=== PATIENT | female | born 1975 | race Caucasian/White ===

== ENCOUNTER 2019-10-06 10:33 | Outpatient (CLI) | payer OTHER, SELFPAY ==
[2019-10-06 10:55] LABS: Basophils Absolute Auto 0.1 K/mm3 (0.0-0.1); Basophils Percent Auto 0.7 % (0.2-1.2); Eosinophils Absolute Auto 0.1 K/mm3 (0-0.3); Eosinophils Percent Auto 1.2 % (0-4.4); Hematocrit 40.1 % (37.0-47.0); Hemoglobin 13.5 g/dL (12.0-15.0); Immature Granulocyte Absolute 0.02 K/mm3 (0.00-0.031); Immature Granulocyte Percent A 0.3 % (0-0.5); Lymphocytes Absolute Auto 1.76 K/mm3 (0.9-3.2); Lymphocytes Percent Auto 25.7 % (18.3-44.2); Mean Corpuscular HGB Conc 33.7 g/dl (32-36); Mean Corpuscular Hemoglobin 30.7 pg (26-34); Mean Corpuscular Volume 91.1 fl (80-100); Mean Platelet Volume 9.5 fl (7.4-10.4); Monocytes Absolute Auto 0.3 K/mm3 (0.1-0.6); Monocytes Percent Auto 4.7 % (2.6-8.5); Neutrophils Absolute Auto 4.6 K/mm3 (1.3-6.7); Neutrophils Percent Auto 67.4 % (45.5-73.1); Platelet Count Result 287 k/mm3 (150-375); Red Cell Distribution Width 12.8 % (11.5-14.5); White Blood Count 6.9 K/mm3 (4.5-10.0)
[2019-10-06 11:12] LABS: Alanine Aminotransferase 16 U/L (4-35); Albumin Level 4.7 g/dL (3.5-5.1); Alkaline Phosphatase 58 U/L (38-126); Anion Gap 7 mmol/L (8-16); Aspartate Amino Transferase 27 U/L (14-36); Bilirubin,Total 0.6 mg/dL (0.2-1.3); Blood Urea Nitrogen 9 mg/dL (7-17); Calcium 8.9 mg/dL (8.4-10.2); Carbon Dioxide 28 mmol/L (22-30); Chloride 103 mmol/L (98-107); Cholesterol 203 mg/dL (0-200); Estimated Glomerular Filt Rate > 60; Glucose 95 mg/dL (65-105); HDL Direct 48 mg/dL; Potassium 3.8 mmol/L (3.4-5.0); Sodium 138 mmol/L (137-145); Triglycerides 132 mg/dL (<150)
[2019-10-06 11:22] LABS: LDL Cholesterol Direct 131 mg/dL
[2019-10-06 11:40] LABS: Thyroid Stimulating Hormone 0.924 uIU/mL (0.465-4.680)
== END 2019-10-06 10:34 | disposition home or self-care (01) ==
PROVIDERS: Visit Provider Obstetrics & Gynecology
DX: Z01.419 Encounter for gynecological examination (general) (routine) without abnormal findings (principal)
CPT/HCPCS: 36415; 80053; 80061; 82306; 84443; 85025

== ENCOUNTER → 2019-12-09 10:40 | Outpatient (CLI) | payer OTHER, SELFPAY ==
--- NOTE | ~2019-12-09 | MM_ITS ---
EXAMINATION: MM screening hi BI w crispin HISTORY: Screening mammogram TECHNIQUE: Craniocaudal and mediolateral oblique 3-D tomosynthesis images were obtained and synthetic 2-D images were generated. CAD analysis was submitted and interpreted. COMPARISON: No prior mammogram is available for comparison at this institution. BREAST PARENCHYMAL COMPOSITION: The breasts are extremely dense, which lowers the sensitivity of mamm ography. FINDINGS: Bilateral calcifications are noted, more numerous on the left, with numerous punctate micro calcifications in the upper outer quadrant of the left breast in particular. Magnification views are recommended for better definition of the upper outer quadrant left breast microcalcifications. Otherwise there is no evidence of suspicious mass, calcification, or architectural distortion to sugg est malignancy in either breast. There has been no suspicious interval change. IMPRESSION: 1. Upper outer quadrant left breast microcalcifications 2. Recommend diagnostic left mammogram with magnification views BI-RADS Category 0: Incomplete: Needs additional imaging evaluation. Reviewed, dictated and finalized at location A.
== END ==
PROVIDERS: PCP Internal Medicine; Visit Provider Obstetrics & Gynecology
DX: Z12.31 Encounter for screening mammogram for malignant neoplasm of breast (principal); R92.8 Other abnormal and inconclusive findings on diagnostic imaging of breast
CPT/HCPCS: 77063; 77067

== ENCOUNTER → 2019-12-30 08:34 | Outpatient (CLI) | payer OTHER, SELFPAY ==
--- NOTE | ~2019-12-30 | MM_ITS ---
EXAMINATION: MM diagnostic mammo unilat LT HISTORY: Indeterminate left breast calcifications on baseline screening mammogram TECHNIQUE: Additional images of the left breast were performed. CAD analysis was submitted and interp reted. COMPARISON: 12/09/2019 FINDINGS: There are punctate calcifications in a segmental distribution in the anterior third of the upper outer quadrant of the left breast which appear to be round in morphology. No suspicious mass or architectural distortion is identified. IMPRESSION: 1. Probably benign left breast calcifications. 2. Recommend 6 month follow-up left diagnostic mammogram. BI-RADS category 3, probably benign findings. Reviewed, dictated and finalized at location A. [employer] DEPARTMENT
== END ==
PROVIDERS: Visit Provider Obstetrics & Gynecology
DX: R92.8 Other abnormal and inconclusive findings on diagnostic imaging of breast (principal)
CPT/HCPCS: 77065

== ENCOUNTER 2020-05-09 09:01 | Outpatient (CLI) | payer OTHER, SELFPAY ==
--- NOTE | 2020-05-26 15:39 | WPDHOMESLEEP ---
Sleep Study - Home Unattended Date of Study: 05/09/20 Ordering Provider: Rishi David APRN Interpreting Provider: Grisel Bansal MD Home Sleep Study Type: Watch PAT Height: 1.63 m Weight: 72.575 kg Body Mass Index: 27.4 Neck Circumference (inches): 16 Crane: 12 Reason for Sleep Study Non-restorative sleep, loud snoring Sleep History Mari Greer is a 44 year old female who reports poor sleep over the last 8 years. Her family tells her that she snores loudly nightly. She snores in short bursts and stops breathing abruptly. She wakes up throughout the night and has excessive daytime sleepiness. She rarely awakens at night with heartburn, belching or coughing. She frequently awakens from sleep feeling short of breath. She rarely has trouble sleeping with a cold. She occasionally wakes up gasping for breath at night. She occasionally has breathing problems at night observed by others. She does not sweat excessively at night or notice her heart pounding or beating irregularly night. She occasionally falls asleep during the day, never involuntarily or while driving. She does not have loss of muscle tone with strong emotion. She does not have daytime difficulties due to excessive sleepiness. She works as a impregnator /upscale security officer. She does not feel paralyzed on waking or falling asleep and does not have vivid dreamlike scenes upon waking or falling asleep. She does not feel afraid to fall asleep. She does not have nightmares. She occasionally remembers her dreams. She frequently has racing thought. She occasionally feels sad or depressed. She frequently feels anxious, and frequently has muscular tension. She does not kick at night, however occasionally she notices parts of her body kicking at night. She does not have achy or crawling feelings in her legs at night, and does not have leg pain at night. She is occasionally has morning jaw pain. She frequently clenches her teeth at night. She is not bothered by pain during the day and is not awakened by pain at night. She frequently wakes up feeling stiff in the morning with sore achy muscles and pain in the neck and spine. She has fatigue, memory problems, concentration difficulties and feels tense. Normal bedtime is 10:00 p.m. falling asleep within minutes. She typically wakes 3-5 times at night for no apparent reason. She may stay awake from an hour to 2 hours when this happens. She wakes the morning at 6:00 a.m.. She estimates 8 hours of sleep at night. On the weekends, she stays awake until 11:00 p.m. and wakes at 8:00 a.m. Her sleep is sometimes disturbed by her , and sometimes by one of their pets. Habits: she quit tobacco 25 years ago. Caffeine 2 servings a day. Alcohol 1-2 per day. No recreational drugs. COUNT INCLUDES THE [facility] Past Medical History Medical History (Updated 05/26/20 @ 15:45 by Grisel Bansal MD) Depression Diverticulitis GERD (gastroesophageal reflux disease) Hypertension IBS (irritable bowel syndrome) Twins, both liveborn Surgical History Surgical History (Updated 05/26/20 @ 16:17 by Grisel Bansal MD) Previous section Family History Family History Grandparent Family history of coronary artery disease Social History Social History (Updated 05/26/20 @ 15:45 by Grisel Bansal MD) Smoking status: Former smoker Second hand tobacco smoke exposure: No Smoking end date: 02/18/83 Alcohol intake: current Medications Home Medications Medication Instructions Recorded Confirmed Type amlodipine 10 mg tablet 10 mg PO DAILY #30 tablet 03/16/20 03/16/20 Rx Sleep Procedure The sleep study was completed using [employer] a technically adequate device with seven channels: peripheral arterial tone, actigraphy, body position, snore, respiratory movement, pulse oximetry, sleep staging, and heart rate. Prior to using the device, the patient received verbal
[2020-05-26 16:04] VITALS: BMI 27.4
== END 2020-05-09 09:02 | disposition home or self-care (01) ==
LOC: ANHCSM 09:01
PROVIDERS: PCP Internal Medicine; Visit Provider Nurse Practitioner
DX: G47.10 Hypersomnia, unspecified (principal)
CPT/HCPCS: 95800

== ENCOUNTER 2020-09-21 08:54 | Outpatient (CLI) | payer OTHER, SELFPAY ==
[2020-09-21 09:26] LABS: Basophils Percent Auto 0.5 % (0.2-1.2); Eosinophils Absolute Auto 0.1 K/mm3 (0-0.3); Eosinophils Percent Auto 1.3 % (0-4.4); Hematocrit 41.1 % (37.0-47.0); Hemoglobin 13.8 g/dL (12.0-15.0); Immature Granulocyte Absolute 0.02 K/mm3 (0.00-0.031); Immature Granulocyte Percent A 0.3 % (0-0.5); Lymphocytes Absolute Auto 1.69 K/mm3 (0.9-3.2); Mean Corpuscular HGB Conc 33.6 g/dl (32-36); Mean Corpuscular Hemoglobin 31.2 pg (26-34); Mean Corpuscular Volume 92.8 fl (80-100); Mean Platelet Volume 9.3 fl (7.4-10.4); Monocytes Absolute Auto 0.4 K/mm3 (0.1-0.6); Monocytes Percent Auto 6.1 % (2.6-8.5); Neutrophils Absolute Auto 4.1 K/mm3 (1.3-6.7); Neutrophils Percent Auto 64.8 % (45.5-73.1); Platelet Count Result 289 k/mm3 (150-375); Red Blood Count 4.43 M/mm3 (4.2-5.4); Red Cell Distribution Width 12.4 % (11.5-14.5); White Blood Count 6.3 K/mm3 (4.5-10.0)
[2020-09-21 09:41] LABS: Alanine Aminotransferase 14 U/L (4-35); Albumin Level 4.8 g/dL (3.5-5.1); Alkaline Phosphatase 63 U/L (38-126); Anion Gap 12 mmol/L (8-16); Aspartate Amino Transferase 21 U/L (14-36); Bilirubin,Total 0.7 mg/dL (0.2-1.3); Blood Urea Nitrogen 8 mg/dL (7-17); Calcium 9.6 mg/dL (8.4-10.2); Carbon Dioxide 24 mmol/L (22-30); Chloride 100 mmol/L (98-107); Cholesterol 201 mg/dL (0-200); Estimated Glomerular Filt Rate > 60; Glucose 91 mg/dL (65-110); HDL Direct 52 mg/dL; Sodium 136 mmol/L (137-145); Triglycerides 139 mg/dL (<150)
[2020-09-21 09:52] LABS: LDL Cholesterol Direct 113 mg/dL
== END 2020-09-21 08:55 | disposition home or self-care (01) ==
PROVIDERS: PCP Internal Medicine; Visit Provider Internal Medicine
DX: Z00.00 Encounter for general adult medical examination without abnormal findings (principal)
CPT/HCPCS: 36415; 80053; 80061; 85025

== ENCOUNTER → 2020-10-07 07:53 | Outpatient (CLI) | payer OTHER, SELFPAY ==
--- NOTE | ~2020-10-07 | MM_ITS ---
EXAMINATION: MM diagnostic hi LT w crispin HISTORY: Six-month follow-up for probably benign left breast calcifications TECHNIQUE: Craniocaudal, mediolateral, and mediolateral oblique 3-D tomosynthesis images of the left breast were performed and synthetic 2-D images were generated. Magnification views are also obtained. CAD analysis was submitted and interpreted. COMPARISON: 12/30/2019, 12/09/2019 BREAST PARENCHYMAL COMPOSITION: The breasts are extremely dense, which lowers the sensitivity of mamm ography. FINDINGS: There is stable punctate calcifications in a segmental distribution in the anterior third o f the upper outer quadrant of the left breast. These appear to be round in morphology. No suspicious mass or architectural distortion is identified. IMPRESSION: 1. Stable, probably benign left breast calcifications. 2. Recommend 6 month follow-up diagnostic mammogram. BI-RADS category 3, probably benign findings. Reviewed, dictated and finalized at location A.
== END ==
PROVIDERS: PCP Internal Medicine; Visit Provider Obstetrics & Gynecology
DX: R92.8 Other abnormal and inconclusive findings on diagnostic imaging of breast (principal)
CPT/HCPCS: 77061; 77065; G0279

== ENCOUNTER → 2021-03-17 07:56 | Outpatient (CLI) | payer OTHER, SELFPAY ==
--- NOTE | ~2021-03-17 | MM_ITS ---
EXAMINATION: MM diagnostic hi BI w crispin HISTORY: Six-month follow-up for probable bleed benign left breast calcifications. TECHNIQUE: Craniocaudal, mediolateral, and mediolateral oblique 3-D tomosynthesis images of the yohanaas ts were performed and synthetic 2-D images were generated. CAD analysis was submitted and interpreted . COMPARISON: 10/07/2020, 12/30/2019, 12/09/2019 BREAST PARENCHYMAL COMPOSITION: The breasts are extremely dense, which lowers the sensitivity of mamm ography. FINDINGS: Right breast: There is no evidence of suspicious mass, calcification, or architectural distortion to suggest malignancy. There has been no suspicious interval change. Left breast: Again noted are stable punctate calcifications in a segmental distribution in the anteri or third of the upper outer quadrant of the breast. These appear to be round in morphology. No suspic ious mass or architectural distortion are identified. IMPRESSION: 1. Stable, probably benign left breast calcifications. 2. Given one year of interval stability, recommend 12 month followup diagnostic mammogram. BI-RADS category 3, probably benign findings. Reviewed, dictated and finalized at location A. EL MACHINE OPERATOR
== END ==
PROVIDERS: PCP Internal Medicine; Visit Provider Obstetrics & Gynecology
DX: R92.8 Other abnormal and inconclusive findings on diagnostic imaging of breast (principal)
CPT/HCPCS: 77062; 77066; G0279

== ENCOUNTER → 2021-04-20 02:27 | Outpatient (CLI) | payer OTHER, SELFPAY ==
[2021-04-20 11:07] LABS: Influenza A QL RT-PCR Negative (Negative); Influenza B QL RT-PCR Negative (Negative); SARS-CoV-2 RNA PCR Negative
== END ==
PROVIDERS: PCP Internal Medicine; Visit Provider Internal Medicine
DX: R09.89 Other specified symptoms and signs involving the circulatory and respiratory systems (principal); Z20.822 Contact with and (suspected) exposure to COVID-19
CPT/HCPCS: 87502; C9803; U0003; U0005

== ENCOUNTER 2021-10-26 07:08 | Outpatient (CLI) | payer OTHER, SELFPAY ==
[2021-10-26 07:25] LABS: Basophils Percent Auto 0.6 % (0.2-1.2); Eosinophils Absolute Auto 0.1 K/mm3 (0-0.3); Eosinophils Percent Auto 1.3 % (0-4.4); Hematocrit 38.5 % (37.0-47.0); Hemoglobin 13.2 g/dL (12.0-15.0); Immature Granulocyte Absolute 0.01 K/mm3 (0.00-0.031); Immature Granulocyte Percent A 0.1 % (0-0.5); Lymphocytes Absolute Auto 1.95 K/mm3 (0.9-3.2); Lymphocytes Percent Auto 28.7 % (18.3-44.2); Mean Corpuscular HGB Conc 34.3 g/dl (32-36); Mean Corpuscular Volume 90.4 fl (80-100); Mean Platelet Volume 9.7 fl (7.4-10.4); Monocytes Absolute Auto 0.4 K/mm3 (0.1-0.6); Monocytes Percent Auto 5.4 % (2.6-8.5); Neutrophils Absolute Auto 4.3 K/mm3 (1.3-6.7); Neutrophils Percent Auto 63.9 % (45.5-73.1); Platelet Count Result 266 k/mm3 (150-375); Red Blood Count 4.26 M/mm3 (4.2-5.4); Red Cell Distribution Width 12.5 % (11.5-14.5); White Blood Count 6.8 K/mm3 (4.5-10.0)
[2021-10-26 07:43] LABS: Alanine Aminotransferase 13 U/L (6-35); Albumin Level 4.9 g/dL (3.5-5.1); Alkaline Phosphatase 55 U/L (38-126); Anion Gap 15 mmol/L (8-16); Aspartate Amino Transferase 20 U/L (14-36); Bilirubin,Total 0.4 mg/dL (0.2-1.3); Blood Urea Nitrogen 11 mg/dL (7-17); Calcium 9.3 mg/dL (8.4-10.2); Carbon Dioxide 25 mmol/L (22-30); Chloride 103 mmol/L (98-107); Cholesterol 191 mg/dL (0-200); Estimated Glomerular Filt Rate > 60; Glucose 110 mg/dL (65-110); HDL Direct 41 mg/dL; Potassium 3.6 mmol/L (3.4-5.0); Sodium 143 mmol/L (137-145); Triglycerides 116 mg/dL (<150)
[2021-10-26 07:54] LABS: LDL Cholesterol Direct 111 mg/dL
== END 2021-10-26 07:09 | disposition home or self-care (01) ==
LOC: ANHLAB 07:09
PROVIDERS: PCP Internal Medicine; Visit Provider Internal Medicine
DX: Z00.00 Encounter for general adult medical examination without abnormal findings (principal)
CPT/HCPCS: 36415; 80053; 80061; 85025

== ENCOUNTER 2021-11-08 13:02 | Outpatient (CLI) | payer OTHER, SELFPAY | END 2021-11-08 13:03 | disposition home or self-care (01) | LOC: ANHAUDIO 13:03 | PROVIDERS: PCP Internal Medicine; Visit Provider Internal Medicine | DX: H90.3 Sensorineural hearing loss, bilateral (principal) | CPT/HCPCS: 92557; 92567 ==

== ENCOUNTER 2021-12-02 16:32 | Emergency (ER) | payer OTHER, SELFPAY ==
[2021-12-02 16:42] VITALS: BP 129/92; PULSE 82; RESP 18; TEMP 36.3; O2SAT 100
[2021-12-02] MEDS: TETANUS,DIPHTHERIA,AC PERTUSSIS ADULT (0.5 ML) BOOSTRIX IM (17:10)
--- NOTE | 2021-12-02 17:13 | ED.WOUNDLAC ---
HPI - Wound/Laceration General Chief Complaint: Wound/Laceration Stated Complaint: finger laceration Time Seen by Provider: 12/02/21 16:48 History of Present Illness HPI narrative: 46-year-old female presents to the emergency room for evaluation of finger laceration. Patient states that she was cutting vegetables using a mandolin. States that she did not use the cutting guard, and cut her right middle finger. Patient had difficulty controlling the bleeding prior to arrival. Pressure bandage was applied to finger in triage. Tetanus status is unknown Related Data Home Medications Medication Instructions Recorded Confirmed Saccharomyces boulardii 250 mg 250 mg PO BID 11/16/20 11/29/21 capsule (Daily Probiotic (S. boulardii)) cholecalciferol (vitamin D3) 25 25 mcg PO DAILY 11/16/20 11/29/21 mcg (1,000 unit) capsule vitamin B complex (B 1 tablet PO DAILY 11/16/20 11/29/21 Complex-Vitamin B12 tablet) ascorbate calcium (vitamin C) 500 500 mg PO DAILY 04/26/21 11/29/21 mg tablet inulin 1.5 gram chewable tablet g PO 04/26/21 11/29/21 (Children's Fiber Select Gummies) zinc gluconate 30 mg tablet 30 mg PO DAILY 04/26/21 11/29/21 Allergies Allergy/AdvReac Type Severity Reaction Status Date / Time latex Allergy Unknown Itching Verified 11/29/21 10:16 Review of Systems Review of Systems: CONSTITUTIONAL: Denies fever, chills, or sweats. EYES: Denies visual changes, redness, or discharge. ENT: Denies rhinorrhea, congestion, sore throat, or otalgia. CARDIOVASCULAR: Denies chest pain, palpitations, or edema. RESPIRATORY: Denies cough or dyspnea. GASTROINTESTINAL: Denies abdominal pain, nausea, vomiting, or diarrhea. GENITOURINARY: Denies dysuria or hematuria. SKIN: Reports laceration to right middle finger MUSCULOSKELETAL: Denies back pain, joint pain, or myalgia. NEUROLOGIC: Denies headache, numbness, dizziness, or weakness. PSYCHIATRIC: Denies anxiety or depression. [facility] Past Medical History Medical History Depression Diverticulitis Family hx of colon cancer GERD (gastroesophageal reflux disease) Hypertension IBS (irritable bowel syndrome) Twins, both liveborn Surgical History Surgical History Previous section Family History Family History Grandparent Family history of coronary artery disease Social History Social History Smoking packs per day: 0.5 Smoking cigarettes per day: 10.0 Years smoked: 5 Smoking pack-years: 2.50 Smoking status: Former smoker Second hand tobacco smoke exposure: No Smoking end date: 02/18/83 Alcohol intake: current Drinks per week: 7 Alcohol use details: social Substance use: never Substance use type: does not use Exam Narrative: GENERAL: Well-appearing, well-nourished, no physical limitations, and in no acute distress. HEAD: Normocephalic, atraumatic. EYES: Conjunctivae normal, PERRLA and EOMI. CHEST: Clear to auscultation. No respiratory distress. No wheezes rales or rhonchi. HEART: Regular rate and rhythm. No murmur heard. Normal peripheral pulses. ABDOMEN: Soft, nontender, nondistended, normal active bowel sounds. EXTREMITIES: Normal range of motion. No edema. No clubbing or cyanosis SKIN: Skin avulsion to the tip of the right middle finger. NEURO: No focal deficits. Alert and oriented x3. MAEW. CN's II-XI intact bilaterally, normal gait PSYCH: Cooperative. Normal mood and affect. Course Vital Signs Vital signs: Vital Signs Temperature 36.3 C L 12/02/21 16:42 Pulse Rate 82 12/02/21 16:42 Respiratory Rate 18 12/02/21 16:42 Blood Pressure 129/92 H 12/02/21 16:42 Pulse Oximetry 100 12/02/21 16:42 Temperature 36.3 C L 12/02/21 16:42 Pulse Rate 82 12/02/21 16:42 Respiratory Rate 1
== END 2021-12-02 17:38 | disposition home or self-care (01) ==
PROVIDERS: Emergency Provider Nurse Practitioner Family; PCP Internal Medicine
DX: S61.212A Laceration without foreign body of right middle finger without damage to nail, initial encounter (principal); W27.4XXA Contact with kitchen utensil, initial encounter; Z23 Encounter for immunization
CPT/HCPCS: 90471; 90715; 99282

== ENCOUNTER 2022-03-07 09:56 | Day surgery (SDC) | payer OTHER, SELFPAY ==
[2022-01-19 10:32] VITALS: BMI 25.6
[2022-02-21 15:04] VITALS: BMI 24.0
--- NOTE | 2022-03-06 12:13 | P.PNAN_ITS ---
Anes - Initial Pre Proc Eval Procedure: Operation Date: 03/07/22 12:00 Proposed Procedures p Screening Colonoscopy - Harry Mccartney MD Date/Time: 03/06/22 12:13 Surgeon: Harry Mccartney MD Pre Op Diagnosis: Family History of Colon Cancer Patient Data Age: 46 Gender: F Height: 1.63 m Weight: 63.5 kg Allergies Allergy/AdvReac Type Severity Reaction Status Date / Time latex Allergy Unknown Itching Verified 03/07/22 10:44 Home Medications Medication Instructions Recorded Confirmed Type cholecalciferol (vitamin D3) 25 25 mcg PO DAILY 11/16/20 03/07/22 History mcg (1,000 unit) capsule vitamin B complex (B 1 tablet PO DAILY 11/16/20 03/07/22 History Complex-Vitamin B12 tablet) ascorbate calcium (vitamin C) 500 500 mg PO DAILY 04/26/21 03/07/22 History mg tablet amlodipine 10 mg tablet 10 mg PO DAILY #90 tabs 06/12/21 03/07/22 Rx Patient hx anesthesia problems: none Family hx anesthesia problems: none Results Review: All pre-operative results and documents have been reviewed as part of the pre- operative evaluation. [facility] Past Medical History Medical History Depression Diverticulitis Family hx of colon cancer GERD (gastroesophageal reflux disease) Hypertension IBS (irritable bowel syndrome) Twins, both liveborn Surgical History Surgical History Previous section Family History Family History Grandparent Family history of coronary artery disease Social History Social History Smoking packs per day: 0.5 Smoking cigarettes per day: 10.0 Years smoked: 5 Smoking pack-years: 2.50 Smoking status: Former smoker Tobacco type: cigarettes Second hand tobacco smoke exposure: No Smoking end date: 02/18/83 Alcohol intake: current Drinks per week: 7 Alcohol use details: social Substance use: never Substance use type: does not use Living arrangements: with family Spiritual care concerns: No Anes - Eval Final PreProcedure Day of Procedure 03/06/22 12:13 Patient weight: normal Heart: regular rate and rhythm Lungs: clear to auscultation and normal air movement Airway: Mallampati scale class II Neurological: alert and oriented Last oral intake: >/= 8 hours ASA classification: II Emergent: no Anesthetic plan: proceed Anesthesia type and monitoring: general GIVS and standard monitoring Results Review: All pre-operative results and documents have been reviewed as part of the pre- operative evaluation. Informed Consent: The patient's anesthetic plan and its attendant risks and benefits were discussed with the patient/family/POA. Questions were solicited and answers pr ovided to the satisfaction of the patient/family/POA.
--- NOTE | 2022-03-06 12:49 | PM.HPGS ---
History of Present Illness History of Present Illness Consent: Risks, benefits, and alternatives have been discussed and questions answered. Patient agrees to proceed with procedure. Chief complaint: Family History of Colon Cancer Narrative: Mari Greer is a 46 year old female referred for colon cancer screening. She has a family history of colon cancer. Review of Systems Review of Systems: All systems reviewed & are unremarkable except as noted in HPI and below PMFSH Past Medical History Medical History Depression Diverticulitis Family hx of colon cancer GERD (gastroesophageal reflux disease) Hypertension IBS (irritable bowel syndrome) Twins, both liveborn Surgical History Surgical History Previous section Family History Family History Grandparent Family history of coronary artery disease Social History Social History Smoking packs per day: 0.5 Smoking cigarettes per day: 10.0 Years smoked: 5 Smoking pack-years: 2.50 Smoking status: Former smoker Tobacco type: cigarettes Second hand tobacco smoke exposure: No Smoking end date: 02/18/83 Alcohol intake: current Drinks per week: 7 Alcohol use details: social Substance use: never Substance use type: does not use Living arrangements: with family Spiritual care concerns: No Meds Home Medications and Allergies Home Medications Medication Instructions Recorded Confirmed Type cholecalciferol (vitamin D3) 25 25 mcg PO DAILY 11/16/20 03/07/22 History mcg (1,000 unit) capsule vitamin B complex (B 1 tablet PO DAILY 11/16/20 03/07/22 History Complex-Vitamin B12 tablet) ascorbate calcium (vitamin C) 500 500 mg PO DAILY 04/26/21 03/07/22 History mg tablet amlodipine 10 mg tablet 10 mg PO DAILY #90 tabs 06/12/21 03/07/22 Rx Allergies Allergy/AdvReac Type Severity Reaction Status Date / Time latex Allergy Unknown Itching Verified 03/07/22 10:44 Exam Const: General: alert Orientation/consciousness: patient oriented x3 Resp: Auscultation: clear to auscultation bilaterally Cardio: Rhythm: regular rhythm GI: GI Palp: Yes Soft to palpation and No Tenderness to palpation present (GI) Neuro: General: patient oriented x3 Assessment and Plan Assessment and plan (1) Family hx of colon cancer: Code(s): Z80.0 - Family history of malignant neoplasm of digestive organs Status: Acute (2) Colon cancer screening: Code(s): Z12.11 - Encounter for screening for malignant neoplasm of colon Status: Acute Assessment and Plan: Colonoscopy with possible biopsy or polypectomy or cautery or injection of substances.
[2022-03-07 10:46] VITALS: BP 132/100; PULSE 96; RESP 18; TEMP 37.2; O2SAT 100; BMI 26.2
[2022-03-07] MEDS: LACTATED RINGERS 1,000 ML 150 ML IV CONT (10:56)
[2022-03-07 11:30] VITALS: BP 106/63; PULSE 78; RESP 16; O2SAT 100
[2022-03-07 11:39] VITALS: BP 116/71; PULSE 80; RESP 15; O2SAT 100
[2022-03-07 11:49] VITALS: BP 114/75; PULSE 73; RESP 15; O2SAT 100
--- NOTE | 2022-03-07 12:07 | WPDANESPN ---
Anes - Prog Note Post-Op Date/Time: 03/07/22 12:07 Cardiovascular status: normal Respiratory status: normal Airway patency: baseline Mental status: baseline Post-Op hydration status: normal Vital Signs: Last Vital Signs Temp 37.2 C 03/07/22 10:46 Pulse 73 03/07/22 11:49 Resp 15 03/07/22 11:49 BP 114/75 03/07/22 11:49 Pulse Ox 100 03/07/22 11:49 O2 Del Method Room Air 03/07/22 11:49 Pain Score (VAS): 0 I/O: Intake & Output 03/06/22 03/07/22 03/07/22 23:59 07:59 15:59 Intake Total 200 Balance 200 Post-procedural complaints: none Patient Feedback: Patient satisfied with anesthetic care. Other Findings: Patient vital signs back to baseline. Patient denies nausea and vomiting. Patient's pain under control. Patient OK for discharge.
== END 2022-03-07 12:05 | disposition home or self-care (01) ==
PROVIDERS: PCP Nurse Practitioner; Visit Provider Internal Medicine Gastroenterology
PROC: 0DJD8ZZ Inspection of Lower Intestinal Tract, Via Natural or Artificial Opening Endoscopic (ICD-10-PCS; CPT 45378; principal; 2022-03-07 12:00)
DX: Z80.0 Family history of malignant neoplasm of digestive organs (principal)
CPT/HCPCS: 45378

== ENCOUNTER → 2022-08-29 07:47 | Outpatient (CLI) | payer OTHER, SELFPAY ==
--- NOTE | ~2022-08-29 | MMUS_ITS ---
EXAMINATION: MM diagnostic hi BI w crispin, US breast BI complete HISTORY: Calcifications TECHNIQUE: Bilateral full field ML, MLO and CC and left spot 3-D tomosynthesis images were performed and synthetic 2-D images were generated. Magnification views of the left breast. CAD analysis was sub mitted and interpreted. High resolution complete bilateral breast ultrasound examination: All 4 quadr ants and subareolar areas was performed. COMPARISON: 03/09/2021 diagnostic bilateral mammogram 10/07/2020 diagnostic left mammogram 12/30/2019 diagnostic left mammogram 12/09/2019 bilateral screening mammogram BREAST PARENCHYMAL COMPOSITION: The breasts are extremely dense, which lowers the sensitivity of mamm ography. FINDINGS: MAMMOGRAPHIC FINDINGS: Bilateral benign-appearing microcalcifications are noted, more numerous on the left, particularly in the upper outer quadrant. No malignant features at the calcifications are identified. Bilateral breast masses are suggested that largely obscured by the very dense fibroglandular stroma. Bilateral complete breast ultrasound examination was performed. No architectural distortion, malignant calcification, skin thickening or retraction of either breast is evident. ULTRASOUND: No suspicious mass or shadowing of either breast is detected. Right breast: 9:00 5 cm from nipple: Parallel circumscribed 5.3 x 3.2 x 4.9 mm hypoechoic solid lesion without inte rnal vascularity or posterior shadowing, benign in appearance 9:00 4 cm from nipple: There are 2 parallel circumscribed sonolucencies measuring up to 5.5 mm, consi stent with small benign cysts Left breast: 12:00 4.5 cm from nipple: 3.4 x 4.5 x 5.1 mm simple cyst with through transmission posterior enhancem ent 12:00 2 cm from nipple: Complicated 5 mm cyst with through transmission posterior enhancement, no int ernal vascularity, benign in appearance 12:00 subareolar area: 3.4 x 5.2 mm cyst 1:00 4 cm from nipple: Parallel circumscribed 4.4 x 9.6 x 9.6 mm multi septated cyst 2:00 2 cm from nipple: 4.5 x 10.5 x 13.4 mm simple cyst 9:00 3 cm from nipple: Contiguous 4.3 and 2.7 mm cysts. IMPRESSION: 1. Benign findings 2. Routine annual mammographic screening is recommended BI-RADS Category 2: Benign finding(s). Reviewed, dictated and finalized at location A. IMPRESSION: 1. Benign findings 2. Routine annual mammographic screening is recommended BI-RADS Category 2: Benign finding(s).
== END ==
PROVIDERS: PCP Obstetrics & Gynecology; Visit Provider Obstetrics & Gynecology
DX: R92.8 Other abnormal and inconclusive findings on diagnostic imaging of breast (principal)
CPT/HCPCS: 76641; 77062; 77066; G0279

== ENCOUNTER 2022-12-26 07:51 | Outpatient (CLI) | payer OTHER, SELFPAY ==
[2022-12-26 08:17] LABS: Basophils Percent Auto 0.6 % (0.2-1.2); Eosinophils Absolute Auto 0.1 K/mm3 (0-0.3); Eosinophils Percent Auto 2.5 % (0-4.4); Hematocrit 41.7 % (37.0-47.0); Hemoglobin 13.7 g/dL (12.0-15.0); Immature Granulocyte Absolute 0.01 K/mm3 (0.00-0.031); Immature Granulocyte Percent A 0.2 % (0-0.5); Lymphocytes Absolute Auto 1.47 K/mm3 (0.9-3.2); Lymphocytes Percent Auto 30.8 % (18.3-44.2); Mean Corpuscular HGB Conc 32.9 g/dl (32-36); Mean Corpuscular Hemoglobin 30.7 pg (26-34); Mean Corpuscular Volume 93.5 fl (80-100); Mean Platelet Volume 9.6 fl (7.4-10.4); Monocytes Absolute Auto 0.3 K/mm3 (0.1-0.6); Monocytes Percent Auto 6.1 % (2.6-8.5); Neutrophils Absolute Auto 2.9 K/mm3 (1.3-6.7); Neutrophils Percent Auto 59.8 % (45.5-73.1); Platelet Count Result 268 k/mm3 (150-375); Red Blood Count 4.46 M/mm3 (4.2-5.4); Red Cell Distribution Width 12.3 % (11.5-14.5); White Blood Count 4.8 K/mm3 (4.5-10.0)
[2022-12-26 08:31] LABS: Alanine Aminotransferase 20 U/L (6-35); Albumin Level 4.6 g/dL (3.5-5.1); Alkaline Phosphatase 55 U/L (38-126); Anion Gap 7 mmol/L (8-16); Aspartate Amino Transferase 22 U/L (14-36); Bilirubin,Total 0.7 mg/dL (0.2-1.3); Blood Urea Nitrogen 8 mg/dL (7-17); Calcium 9.1 mg/dL (8.4-10.2); Carbon Dioxide 29 mmol/L (22-30); Chloride 102 mmol/L (98-107); Cholesterol 215 mg/dL (0-200); Estimated Glomerular Filt Rate > 60; Glucose 100 mg/dL (65-110); HDL Direct 48 mg/dL; Potassium 3.5 mmol/L (3.4-5.0); Sodium 138 mmol/L (137-145); Triglycerides 135 mg/dL (<150)
[2022-12-26 08:41] LABS: LDL Cholesterol Direct 123 mg/dL
== END 2022-12-26 07:52 | disposition home or self-care (01) ==
LOC: ANHLAB 07:52
PROVIDERS: PCP Nurse Practitioner; Visit Provider Nurse Practitioner Family
DX: Z13.220 Encounter for screening for lipoid disorders (principal); I10 Essential (primary) hypertension
CPT/HCPCS: 36415; 80053; 80061; 85025

== ENCOUNTER 2024-01-22 08:37 | Outpatient (CLI) | payer BC, SELFPAY ==
[2024-01-22 09:19] LABS: Hematocrit 39.2 % (37.0-47.0); Mean Corpuscular HGB Conc 33.2 g/dl (32-36); Mean Corpuscular Hemoglobin 31.4 pg (26-34); Mean Corpuscular Volume 94.7 fl (80-100); Mean Platelet Volume 9.7 fl (7.4-10.4); Platelet Count Result 283 k/mm3 (150-375); Red Blood Count 4.14 M/mm3 (4.2-5.4); Red Cell Distribution Width 12.8 % (11.5-14.5); White Blood Count 5.1 K/mm3 (4.5-10.0)
[2024-01-22 09:51] LABS: Alanine Aminotransferase 16 U/L (6-35); Albumin Level 4.6 g/dL (3.5-5.1); Alkaline Phosphatase 53 U/L (38-126); Anion Gap 5 mmol/L (4-12); Aspartate Amino Transferase 23 U/L (14-36); Bilirubin,Total 0.6 mg/dL (0.2-1.3); Blood Urea Nitrogen 11 mg/dL (7-17); Calcium 8.9 mg/dL (8.4-10.2); Carbon Dioxide 29 mmol/L (22-30); Chloride 106 mmol/L (98-107); Cholesterol 194 mg/dL (0-200); Estimated Glomerular Filt Rate > 60; Glucose 94 mg/dL (65-110); HDL Direct 50 mg/dL; Potassium 3.7 mmol/L (3.4-5.0); Sodium 140 mmol/L (137-145); Triglycerides 85 mg/dL (<150)
[2024-01-22 10:02] LABS: LDL Cholesterol Direct 115 mg/dL
[2024-01-22 10:21] LABS: Thyroid Stimulating Hormone 0.924 uIU/mL (0.465-4.680)
== END 2024-01-22 08:38 | disposition home or self-care (01) ==
PROVIDERS: PCP Nurse Practitioner; Visit Provider Nurse Practitioner
DX: E78.5 Hyperlipidemia, unspecified (principal); I10 Essential (primary) hypertension; Z00.00 Encounter for general adult medical examination without abnormal findings
CPT/HCPCS: 36415; 80053; 80061; 84443; 85027

== ENCOUNTER 2024-05-06 09:00 | Outpatient (CLI) | payer BC, SELFPAY ==
--- NOTE | ~2024-05-06 | MR_ITS ---
MR breast BI wo/w con 05/06/2024 12:02 CDT INDICATION: Increased breast density. TECHNIQUE: MRI of the breasts perform using standard protocol pre-and post IV contrast with the follo wing sequences: Axial T2 STIR, axial T1, axial vibrant T1 with fat suppression precontrast and multip hasic postcontrast. 14 cc MultiHance administered intravenously. COMPARISON: 08/29/2022 FINDINGS: The breasts contain extensive fibroglandular content. Right breast: There are no abnormalities on the precontrast sequences. There is mild background paren chymal enhancement. No enhancing lesions following contrast administration. No areas of enhancement meeting threshold criteria on CAD analysis. No evidence of signal abnormalities in the axillary or internal mammary node distributions. LEFT BREAST: No signal abnormalities on precontrast sequences. There is minimal background parenchym al enhancement. No enhancing lesions following contrast administration. No areas of enhancement me eting threshold criteria on CAD analysis. No evidence of signal abnormalities in the axillary or in ternal mammary node distributions. IMPRESSION: 1: Right breast: Negative. No evidence of malignancy. BI-RADS category 1. Recommend annual mammo graphy follow-up. 2: Left breast: Negative. No evidence of malignancy. BI-RADS category 1. Recommend annual mammogr aphy follow-up. Follow-up MRI may be useful for supplementing mammographic evaluation as clinically indicated. Reviewed, dictated and finalized at location B. IMPRESSION: 1: Right breast: Negative. No evidence of malignancy. BI-RADS category 1. Recommend annual mammography follow-up. 2: Left breast: Negative. No evidence of malignancy. BI-RADS category 1. Re commend annual mammography follow-up. Follow-up MRI may be useful for supplementing mammographic evaluation as clinic ally indicated.
--- OUTSIDE RECORDS SUMMARY | 2024-05-06 09:45 | XMS_ITS | Clinical Summary ---
Author Organization [employer] [address] - [address] [facility] [address] [place] [address] Phone Care Team Providers Care Forepart Reducer Name Role Phone Sravan Martindie Gena DO Primary Care Provider [phone] Allergies Active Allergy Reactions Criticality Noted Date Comments [place] Rash Low 07/30/2011 Latex Other (See Comments) 12/21/2020 unknown Milk Rash Low 07/30/2011 Medications amLODIPine (NORVASC) 10 mg tablet TAKE 1 TABLET BY MOUTH DAILY 11/30/2020 Active Active Problems No known active problems Social History Tobacco Use Types Packs/Day Years Used Date Smoking Tobacco: Never Smokeless Tobacco: Never Tobacco Cessation:Counseling Given: Yes Alcohol Use Standard Drinks/Week Comments Yes 0 (1 standard drink = 0.6 oz pur e alcohol) daily Comments No Sex and Gender Information Value Date Recorded Sex Assigned at Not on file 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 Gender Identity Not on file Sexual Orientation Not on file Occupation Industry Job Start Date Job End Date Not on file Not on file Not on file Not on file Last Filed Vital Signs Vital Sign Reading Time Taken Comments Blood Pressure 118/74 12/21/2020 9:47 AM CDT Pulse 93 01/19/2014 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 Temperature - - Respiratory Rate - - Oxygen Saturation - - Inhaled Oxygen Concentration - - Weight 72.3 kg (159 lb 6.4 oz) 12/21/2020 9:47 A M CDT Height 162.6 cm (5' 4 ) 12/21/2020 9:47 AM CDT Body Mass Index 27.36 12/21/2020 9:47 AM CDT Plan of Treatment Health Maintenance Due Date Last Done Comments DTAP/TDAP/TD VACCINES (1 - Tdap) 1993 HEPATITIS B VACCINES (1 of 3 - 19+ 3-dose series) 1993 CERVICAL CANCER SCREENING 2004 COLORECTAL SCREENING 10/11/2019 Colorectal Cancer Screening 10/11/2019 FIT-DNA Q 3 years 10/11/2019 FIT/FOBT Q 1 year 10/11/2019 Flex Sig/CT Colonography Q 5 years 10/11/2019 BREAST CANCER SCREENING 10/07/2021 10/08/19 21, 12/30/2019, 12/09/2019 INFLUENZA VACCINE (#1) 2023 Procedures Procedure Name Priority Date/Time Associated Diagnosis Comments MAMMO DIAG UNI LEFT 3D MONICA W OR WO CAD Routine 10/07/2020 from Last 3 Months or Most Recently Relevant to Health Maintenance Results * MAMMO DIAG UNI LEFT 3D MONICA W OR WO CAD (10/07/2020) Anatomical Region Laterality Modality Breast Left Mammography us Abstract Provider MAMMO ORDERABLES Edited Result - Final from Last 3 Months or Most Recently Relevant to Health Maintenance Insurance Care Teams Forepart Reducer Relationship Specialty Start Date End Date Dav Martin DO [address] [facility] [address] [place] [id number] PCP - General Internal Medicine 12/21/20
== END 2024-05-06 09:01 | disposition home or self-care (01) ==
PROVIDERS: PCP Nurse Practitioner; Visit Provider Surgery
DX: Z12.31 Encounter for screening mammogram for malignant neoplasm of breast (principal); R92.343 Mammographic extreme density, bilateral breasts; Z80.3 Family history of malignant neoplasm of breast
CPT/HCPCS: 77049; A9579; C8908